=== PATIENT | female | born 1985 | race Caucasian/White ===

== ENCOUNTER → 2020-12-06 15:01 | Outpatient (BNVA) | payer OTHER, SELFPAY | PROVIDERS: Visit Provider Nurse Practitioner Family | DX: Z20.822 Contact with and (suspected) exposure to COVID-19 (principal); J06.9 Acute upper respiratory infection, unspecified | CPT/HCPCS: 87635 ==

== ENCOUNTER → 2021-02-06 08:44 | Outpatient (BNVA) | payer SELFPAY | PROVIDERS: Visit Provider Internal Medicine | DX: E03.9 Hypothyroidism, unspecified (principal); R53.83 Other fatigue; F17.210 Nicotine dependence, cigarettes, uncomplicated | CPT/HCPCS: 99204 ==

== ENCOUNTER → 2023-01-21 09:40 | Outpatient (BNVA) | payer SELFPAY | PROVIDERS: Visit Provider Internal Medicine | DX: E03.9 Hypothyroidism, unspecified (principal); R53.83 Other fatigue; R00.0 Tachycardia, unspecified | CPT/HCPCS: 36415; 84439; 84443 ==

== ENCOUNTER 2023-04-13 19:25 | Outpatient (CLI) | payer SELFPAY ==
[2023-04-13 20:12] LABS: Thyroid Stimulating Hormone 0.12 uIU/mL (0.27-4.20)
[2023-04-13 20:48] LABS: Free T4 Free Thyroxine 1.67 ng/dL (0.82-1.77)
== END 2023-04-13 19:26 | disposition home or self-care (01) ==
LOC: LAB 19:28
PROVIDERS: Visit Provider Internal Medicine
DX: E03.9 Hypothyroidism, unspecified (principal)
CPT/HCPCS: 36415; 84439; 84443

== ENCOUNTER → 2023-06-17 11:00 | Outpatient (BNVA) | payer OTHER, SELFPAY | PROVIDERS: Visit Provider Internal Medicine | DX: E03.9 Hypothyroidism, unspecified (principal); R53.83 Other fatigue | CPT/HCPCS: 36415; 84439; 84443 ==

== ENCOUNTER → 2023-10-07 11:47 | Outpatient (BNVA) | payer OTHER, SELFPAY | PROVIDERS: PCP Clinical Nurse Specialist Adult Health; Visit Provider Clinical Nurse Specialist Adult Health | DX: M25.539 Pain in unspecified wrist (principal) | CPT/HCPCS: 80053; 85025; 85651; 86038; 86140 ==